=== PATIENT | female | born 1995 | race Caucasian/White ===

== ENCOUNTER 2017-01-01 11:22 | Emergency (ER) | payer BC ==
[~2017-01-01] VITALS: Ht 160 cm; Wt 74.8 kg
--- NOTE | ~2017-01-01 | US85 ---
[facility] A Service of [facility] & [facility] RADIOLOGY TEXT RESULTS PATIENT: MARIE STREETER LOCATION: CFTX : [birth year] UNIT #: [id number] AGE: [address]: Mary Anne Guerrero APRN SEX: F ORDER DR: [id number] [facility] [address] [place], [place] [address] [id number] MR#: [id number] Acc #: [id number] NAME: MARIE STREETER : 1995 SEX: F STUDY DATE/TIME: 01/01/2017 12:34 UNIT: [facility] ROOM: STUDY DESCRIPTION: [facility] or [facility] St[facility] Attending Physician: Mary Anne Guerrero A.P.R.N. Ordering Physician: Ed Doc Amilcar Lu Primary Care Physician: No Primary Care Physician MEDICAL IMAGING REPORT This report is preliminary unless electronic signature is present EXAM Left lower extremity venous ultrasound. HISTORY Left lower extremity pain for 3 days. TECHNIQUE Venous ultrasound examination of the left lower extremity was performed using grayscale, spectral Doppler and color flow Doppler imaging. FINDINGS The examination is negative. There is no evidence of left lower extremity deep venous thrombus from the groin to the lower calf. Visualized greater saphenous vein is also patent. IMPRESSION Negative examination. No evidence of left lower extremity DVT. Dictated by... Myles Muller M.D. THIS IS AN ELECTRONICALLY VERIFIED REPORT Myles Muller M.D. at 01/01/2017 11:45 PM VEDA/casimiro TD: 01/01/2017 16:55 JOB #: [id number] MEDICAL IMAGING REPORT Page 1 of 1 COPY
== END 2017-01-01 14:32 | disposition home or self-care (01) ==
LOC: CED 11:22 → CFTX 11:22
DX: M79.662 Pain in left lower leg (principal); F17.210 Nicotine dependence, cigarettes, uncomplicated
CPT/HCPCS: 93971; 99284